=== PATIENT | female | born 1980 | race Caucasian/White ===

== ENCOUNTER 2025-09-02 18:41 | Emergency (ER) | payer BC, OTHER ==
[~2025-09-02] VITALS: Ht 162.6 cm; Wt 75.7 kg
[2025-09-02 18:53] VITALS: TEMP 98
[2025-09-02 19:27] LABS: APPEARANCE,URINE CLEAR (CLEAR); BLOOD, URINE NEGATIVE Ery/uL (NEGATIVE); LEUKOCYTE ESTERASE ,URINE TRACE (NEGATIVE); NITRITE, URINE NEGATIVE (NEGATIVE); UGLUCOSE NEGATIVE (NEGATIVE)
[2025-09-02 19:32] LABS: PLATELET COUNT (AUTO) 178 K/uL (150-450); RED BLOOD CELL COUNT(AUTO) 5.03 MIL/uL (4.0-5.2); RED CELL DISTRIBUTION WIDTH 12.5 % (11.5-15.0); WHITE BLOOD COUNT (AUTO) 12.9 K/uL (4.3-11.0)
[2025-09-02 19:53] LABS: PREGNANCY TEST URINE QUAL NEGATIVE (NEGATIVE)
[2025-09-02] MEDS: IV NS 0.9% 1,000 ML BAG IV ONE (19:55)
[2025-09-02 20:01] LABS: ADD URINE CULTURE YES
[2025-09-02 20:19] LABS: CALCIUM, SERUM 8.2 mg/dL (8.5-10.1); CREATININE 0.8 mg/dL (0.6-1.3); SODIUM SERUM 140.0 mmol/L (136-145); UREA NITROGEN, BLOOD 18.0 mg/dL (7-18)
[2025-09-02] MEDS: ONDANSETRON HCL/PF 4 MG/2 ML VIAL IVP ONE (20:23)
[2025-09-02] MEDS ORDERED: ONDA4TAB5 PO (20:45)
[2025-09-02 21:07] VITALS: BP 113/78; O2SAT 99
[2025-09-02 22:33] LABS: ASPARTATE AMINOTRANSFERASE 18.0 U/L (15-37)
[2025-09-02 22:35] LABS: TOTAL PROTEIN, SERUM 7.3 g/dL (6.4-8.2)
== END 2025-09-02 21:08 | disposition home or self-care (01) ==
LOC: ER 18:45
DX: R53.1 Weakness (principal); T50.905A Adverse effect of unspecified drugs, medicaments and biological substances, initial encounter; L50.9 Urticaria, unspecified; D72.829 Elevated white blood cell count, unspecified; Z90.49 Acquired absence of other specified parts of digestive tract; Z90.710 Acquired absence of both cervix and uterus; Z60.2 Problems related to living alone
CPT/HCPCS: 99283; 96374; 96361; 85025; 80048; 87077; 87086; 83690; 80076; 84703; 87186; 81001; 36415; J1200; J7030